=== PATIENT | female | born 1985 | race African-American/Black ===

== ENCOUNTER 2023-12-08 20:51 | Emergency (ER) | payer SELFPAY ==
[~2023-12-08] VITALS: Ht 172.7 cm; Wt 75.0 kg
[2023-12-08] MEDS: ACETAMINOPHEN 325MG TABLET PO ONE (21:38)
[2023-12-08] MEDS ORDERED: TOPUD PO (22:46)
[2023-12-08] MEDS: KETAMINE HCL 50 MG/ML 10ML IM ONE (23:45)
[2023-12-08] MEDS: PROPOFOL 200MG/20ML VIAL IV ONE (23:45)
[2023-12-09 01:01] VITALS: TEMP 98.2; O2SAT 99
[2023-12-09 02:45] VITALS: BP 183/110; PULSE 101; RESP 16
== END 2023-12-09 02:49 | disposition home or self-care (01) ==
LOC: ER 21:24
DX: S53.114A Anterior dislocation of right ulnohumeral joint, initial encounter (principal); I10 Essential (primary) hypertension; V98.8XXA Other specified transport accidents, initial encounter; Y93.89 Activity, other specified; Y92.89 Other specified places as the place of occurrence of the external cause; Y99.8 Other external cause status
CPT/HCPCS: 99285; 24600; 73070 ×2; 73090; 99152; 96372; J3490; J2704; A4565